=== PATIENT | male | born 1995 | race Caucasian/White ===

== ENCOUNTER 2017-08-22 12:44 | Emergency (ER) | payer MEDICAID ==
[~2017-08-22] VITALS: Ht 170.2 cm; Wt 62.0 kg
[2017-08-22 12:45] VITALS: BP 108/74
== END 2017-08-22 13:35 | disposition home or self-care (01) ==
LOC: ED 13:24
DX: K02.9 Dental caries, unspecified (principal)
CPT/HCPCS: 99283

== ENCOUNTER 2017-12-14 08:02 | Emergency (ER) | payer MEDICAID ==
[~2017-12-14] VITALS: Ht 170.2 cm; Wt 61.2 kg
[2017-12-14 08:04] VITALS: BP 110/74
== END 2017-12-14 09:12 | disposition home or self-care (01) ==
LOC: ED 09:00
DX: K08.89 Other specified disorders of teeth and supporting structures (principal)
CPT/HCPCS: 99283